=== PATIENT | female | born 1985 | race Caucasian/White ===

== ENCOUNTER 2016-11-10 22:35 | Emergency (ER) | payer MEDICAID, OTHER ==
[~2016-11-10] VITALS: Ht 170.2 cm; Wt 66.0 kg
[~2016-11-10 22:35] MED LIST: LORT5TAB PO; PREN0.01 PO; VALA500 PO
[2016-11-10 22:37] VITALS: BP 123/75; PULSE 94; RESP 16; TEMP 98.8; O2SAT 98
== END 2016-11-11 01:35 | disposition left against medical advice (07) ==
LOC: NED 22:35
DX: Z53.21 Procedure and treatment not carried out due to patient leaving prior to being seen by health care provider (principal)
CPT/HCPCS: 99281